=== PATIENT | female | born 2000 | race Caucasian/White ===

== ENCOUNTER 2024-01-29 09:52 | Emergency (ER) | payer SELFPAY ==
--- NOTE | 2024-01-29 10:04 | ED.URI ---
HPI - URI/Sore Throat General Chief Complaint: Upper Respiratory Infection Stated Complaint: flu like symptoms, throat prob Time Seen by Provider: 01/29/24 10:20 Source: patient and RN notes reviewed Mode of arrival: ambulatory Limitations: no limitations History of Present Illness HPI Narrative: 23-year-old female presents with concern for sore throat, sinus drainage, cough for 2 days. Reports she has tried aomj-cdo-givjzbh medications without relief. Reports body aches. Denies fever, chills, sweats. Reports her roommates have similar symptoms MD elicited complaint: cough and sore throat Related Data Allergies Allergy/AdvReac Type Severity Reaction Status Date / Time No Known Drug Allergies Allergy Unknown Verified 01/29/24 10:12 strawberry Allergy Hives Verified 01/29/24 10:12 Review of Systems Review of Systems: CONSTITUTIONAL: Reports malaise. Denies chills, sweats, or fever. EYES: Denies visual changes, redness, or discharge. ENT: Reports rhinorrhea, congestion, and sore throat. CARDIOVASCULAR: Denies chest pain, palpitations, or edema. RESPIRATORY: Reports cough. Denies dyspnea. GASTROINTESTINAL: Denies abdominal pain, nausea, vomiting, diarrhea SKIN: Denies rash or itching. MUSCULOSKELETAL: Reports myalgia. NEUROLOGIC: Denies headache. All systems reviewed & are unremarkable except as noted in HPI and below PMFSH Comments At time of signature, agree with nursing past medical, surgical, social and family history. There is no relevant family history pertinent to the presenting complaint Exam Narrative: GENERAL: Well-appearing, well-nourished, and in no acute distress. HEAD: Normocephalic EYES: PERRLA, conjunctivae clear ENT: Nares clear, turbinates edematous and erythematous, clear discharge. Mucous membranes moist. TM pearly mccormick with dull light reflex bilaterally; no tragal tenderness. Oropharynx not erythematous without lesions. Tonsils not enlarged and without exudate, no drooling, no hoarseness, no trismus, uvula midline. NECK: Supple. No lymphadenopathy CHEST: Clear to auscultation, breath sounds equal. No wheezing, rhonchi, rales, or stridor. No respiratory distress, speaks in full sentences. HEART: Regular rate and rhythm. No murmur heard. SKIN: Warm, dry, no rash. NEURO: Alert and oriented x3. PSYCH: Normal mood and affect Course Course Emergency Course: Patient is aware of diagnosis, understands and agrees to treatment plan. Anticipatory guidance given. Patient agrees to follow-up as directed and is aware of reasons to seek care at the emergency department. Portions of this record may have been created with voice recognition software Level of Care: Express Care Visit Vital Signs Vital signs: Reviewed. MDM - URI/Sore Throat MDM Narrative Medical decision making narrative: Differential diagnosis considered: Sharif virus, strep pharyngitis, allergic rhinitis, upper respiratory tract infection, sinusitis, rhinosinusitis, nasopharyngitis. viral pharyngitis, otitis media, otitis externa, pneumonia, bronchitis, viral cough syndrome, viral syndrome, and influenza. Exam findings show no acute concerns or changes; patient is non-toxic appearing and is in no distress. Patient is appropriate for outpatient treatment and follow-up. Lab Data Attestation: I reviewed the patient's lab results. Critical Care Time Critical Care Time Critical Care Time: No Discharge Plan Discharge Clinical Impression: Upper respiratory infection Patient Disposition: Home, Self-Care Condition: Stable Instructions: Upper Respiratory Infection (ED) Additional Instructions: Your rapid COVID and flu tests are negative Your rapid strep swab was negative today at [facility]. A throat culture will be sent to the laboratory for further testing. If the test is positive, you will receive a phone call within 48 hours and an appropriate antibiotic will be initiated at that time. Your symptoms are likely due
[2024-01-29 10:11] VITALS: BP 129/83; PULSE 96; RESP 16; TEMP 36.3; O2SAT 100
[2024-01-29 10:13] VITALS: BP 129/83; PULSE 96; RESP 16; TEMP 36.3; O2SAT 100
[2024-01-29 10:29] LABS: EDCOVIDSCREEN Negative (Negative); EDINFLUASCREEN Negative (Negative); EDINFLUBSCREEN Negative (Negative); EDSTREPNEGPOS1 Negative (Negative)
== END 2024-01-29 10:37 | disposition home or self-care (01) ==
PROVIDERS: Emergency Provider Nurse Practitioner
DX: J06.9 Acute upper respiratory infection, unspecified (principal); Z20.822 Contact with and (suspected) exposure to COVID-19
CPT/HCPCS: 87081; 87426; 87804; 87880; 99213; G0463

== ENCOUNTER 2024-02-01 09:47 | Emergency (ER) | payer SELFPAY ==
--- NOTE | 2024-02-01 09:50 | ED.URI ---
HPI - URI/Sore Throat General Chief Complaint: Ear Stated Complaint: Chills/Diarrhea/Ear Pain Source: patient and RN notes reviewed Mode of arrival: ambulatory Limitations: no limitations History of Present Illness HPI Narrative: Patient is a 23-year-old female who presents to the [facility] with complaints of bilateral ear pain which is worse on the left than the right. She states that she has had ear pain since Wednesday. Patient has been seen at this facility and tested for COVID, flu, and strep throat. She states that she had cold symptoms prior to being seen at this facility. All of the testing was negative, and she was diagnosed with a viral illness. She states that she has also had multiple episodes of diarrhea and had an episode of vomiting. She states that she has had decreased appetite. She denies abdominal pain. Denies fever. Denies chest pain or shortness of breath. Related Data Allergies Allergy/AdvReac Type Severity Reaction Status Date / Time No Known Drug Allergies Allergy Unknown Verified 02/01/24 10:03 strawberry Allergy Hives Verified 02/01/24 10:03 Review of Systems Review of Systems: CONSTITUTIONAL: Denies fever, chills, or sweats. EYES: Denies visual changes, redness, or discharge. ENT: Reports otalgia but denies sore throat CARDIOVASCULAR: Denies chest pain, palpitations, or edema. RESPIRATORY: Denies cough or dyspnea. GASTROINTESTINAL: Denies abdominal pain, but reports vomiting and diarrhea. GENITOURINARY: Denies dysuria or hematuria. SKIN: Denies rash or itching. MUSCULOSKELETAL: Denies back pain, joint pain, or myalgia. NEUROLOGIC: Denies headache, numbness, or weakness. Pertinent positives per HPI. PMFSH Comments At the time of my signature, I reviewed and agree with the nursing past medical, surgical, social, and family history. There is no relevant family history pertinent to the patient complaint. Exam Narrative: GENERAL: This is a well-nourished, well-developed patient, in no apparent distress. HEAD: normocephalic, atraumatic. EYES: PERRL. Sclera clear/white. Vision is grossly intact. EARS: External ears normal, auditory canals clear and without drainage, TM normal without perforation on right; left TM erythematous and bulging. Hearing grossly intact. NOSE: External nose normal with no obvious nasal discharge, nares without redness, no rhinorrhea. THROAT: Mucous membranes moist, posterior pharynx clear. NECK: Neck supple, non-tender without lymphadenopathy, masses or thyromegaly. CARDIOVASCULAR: Regular rate and rhythm without murmurs, gallops, or rubs. RESPIRATORY: Clear to auscultation. Breath sounds equal bilaterally. No wheezes, rales, or rhonchi. GASTROINTESTINAL: Abdomen soft, non-tender, nondistended. Bowel sounds are active. No hepato-splenomegaly, or palpable masses. No guarding. SKIN: warm, intact with no suspicious lesions or rash, good texture and turgor. NEURO: awake, alert, and oriented to person, place and time. There were no obvious focal neurologic abnormalities. EXTREMITIES: No clubbing, cyanosis, or edema. No joint tenderness, effusion, or edema noted. BACK: Nontender without deformity or crepitance. No flank tenderness. Course Course Level of Care: Express Care Visit Vital Signs Vital signs: Vital Signs Temperature 97.7 F 02/01/24 10:03 Pulse Rate 86 02/01/24 10:03 Respiratory Rate 16 02/01/24 10:03 Blood Pressure 110/70 02/01/24 10:03 Pulse Oximetry 100 02/01/24 10:03 Temperature 97.7 F 02/01/24 10:03 Pulse Rate 86 02/01/24 10:03 Respiratory Rate 16 02/01/24 10:03 Blood Pressure 110/70 02/01/24 10:03 Pulse Oximetry 100 02/01/24 10:03 Reviewed MDM - URI/Sore Throat MDM Narrative Medical decision making narrative: Take antibiotics as directed. May given ibuprofen and/or Tylenol as needed for pain and/or fever. Follow up with primary care provider in 7-10 days to have ear rechecked. Differential Diagnosis Dif
[2024-02-01 10:03] VITALS: BP 110/70; PULSE 86; RESP 16; TEMP 36.5; O2SAT 100
== END 2024-02-01 10:19 | disposition home or self-care (01) ==
PROVIDERS: Emergency Provider Nurse Practitioner
DX: H66.92 Otitis media, unspecified, left ear (principal)
CPT/HCPCS: 99213; G0463

== ENCOUNTER 2024-07-11 19:30 | Emergency (ER) | payer SELFPAY ==
--- OUTSIDE RECORDS SUMMARY | 2024-07-11 19:32 | XMS_ITS | Patient Health Summary ---
Author Organization [facility] [employer] Address [address] [place] [address] Care Team Providers Care Director Software Quality Assurance Name Role Phone Unavailable Primary Care Provider Unavailabl e Note from [facility],non-owned Affiliates and Associated Physician Practices is amultiple site organization consisting of ambulatory clinics and hospital sitesin [place], [place], [place] and [place]. This disclosure is being madepursuant to the Care Everywhere program and may not contain all information available regarding this patient. Last updated 18.[facility] Medications Be aware that medications may not be up to date on this document. Always verify current medications with the patient. No known medications Social History Tobacco Use Types Packs/Day Years Used Date Smoking Tobacco: Never Passive Smoke Exposure: Never Smokeless Tobacco: Never Tobacco Cessation:Counseling Given: Not Answered Sex and Gender Information Value Date Recorded Sex Assigned at Not on file Gender Identity Not on file Sexual Orientation Not on file Last Filed Vital Signs Vital Sign Reading Time Taken Comments Blood Pressure - - Pulse - - Temperature - - Respiratory Rate - - Oxygen Saturation - - Inhaled Oxygen Concentration - - Weight 68.3 kg (150 lb 9.2 oz) 08/25/2022 4:10 P M CDT Height 163.4 cm (5' 4.33 ) 08/25/2022 4:10 PM CD T Body Mass Index 25.58 08/25/2022 4:10 PM CDT Procedures * XR SHOULDER RIGHT 2VW OR MORE(Performed 08/25/2022) Performed for Closed dislocation of right glenohumeral joint, initial encounter Results * XR SHOULDER RIGHT 2VW OR MORE (08/25/2022 4:33 PM CDT) Anatomical Region Laterality Modality Upper Extremity Radiographic Akiko ging 08/25/2022 4:39 PM CDT Impressions 08/25/2022 4:50 PM CDT Question slight indentation along the posterior superior humeral head. This may reflect normal variant versus possible Hill-Sachs injury, please correlate with patient clinical presentation. Reading Radiologist: Yasmin Edwards on 08/25/2022 at 4:50 PM Narrative 08/25/2022 4:50 PM CDT INDICATION: Shoulder dislocation COMPARISON: None available. TECHNIQUE: 3 views of the right shoulder. FINDINGS: Question slight indentation along the posterior superior humeral head. The glenoid is normal in appearance. The humeral head is well-seated within the glenoid. The soft tissues are normal. Procedure Note Yasmin Edwards DO - 08/25/2022 INDICATION: Shoulder dislocation COMPARISON: None available. TECHNIQUE: 3 views of the right shoulder. FINDINGS: Question slight indentation along the posterior superior humeral head. The glenoid is normal in appearance. The humeral head is well-seated within the glenoid. The soft tissues are normal. IMPRESSION Question slight indentation along the posterior superior humeral head.This may reflect normal variant versus possible Hill-Sachs injury, please correlatewith patient clinical presentation. Reading Radiologist: Yasmin Edwards on 08/25/2022 at 4:50 PM Cyndee Coronel MD DIAGNOSTIC IMAGING [facility]
--- OUTSIDE RECORDS SUMMARY | 2024-07-11 19:32 | XMS_ITS | Clinical Summary ---
Author Organization [facility] Address [address] [place] [address] Phone Care Team Providers Care Cnc Machine Setter Name Role Phone Provider, Unknown Primary Care Provider Unavaila ble Allergies Active Allergy Reactions Criticality Noted Date Comments Bode Flavoring Agent (Non-Screening) Other (see Comments) 01/20/2021 Medications No known medications Active Problems No known active problems Immunizations Immunization Administration Dates Next Due DTAP VACCINE 01/19/2007, 4,2002,08/09,2002 HEP B/HIB Combined Vaccine 2002,2002 Hepatitis B Vaccine, Pediatric/adolescent 2002 Hib Vaccine,unspecified Formulation 10/05/2003,0 2002 Human Papillomavirus (HPV) 9 -valent Vaccine 01/08/2020 Inactivated Polio Vaccine 01/19/2007,,2002,06/07 Influenza Vaccine, Quadrivalent, PF 02/15/2019 MMR Vaccine 05/07/2003 MMRV 01/19/2007 Meningococcal Group B OMV 03/01/2020,01/08/2020 Meningococcal MCV4O 01/08/2020 Meningococcal Vaccine 11/25/2015 Pneumococcal Vaccine Peds - 7 Valent 05/07/2003, 03/05/2003 TDAP Vaccine 10/26/2013 Varicella Vaccine Live 05/07/2003 Social History Tobacco Use Types Packs/Day Years Used Date Smoking Tobacco: Never Smokeless Tobacco: Never Tobacco Cessation:Counseling Given: Not Answered Alcohol Use Standard Drinks/Week Comments Not Currently 0 (1 standard drink = 0.6 oz pur e alcohol) Sexually Active Control Partners Comments Yes Comments No Sex and Gender Information Value Date Recorded Sex Assigned at Not on file Legal Sex Female 8:08 AM CDT Gender Identity Not on file Sexual Orientation Not on file Last Filed Vital Signs Vital Sign Reading Time Taken Comments Blood Pressure 129/74 10/15/2023 9:48 AM CDT Pulse 98 10/15/2023 9:48 AM CDT Temperature 36.3 C (97.3 F) 10/15/2023 9:48 AM CDT Respiratory Rate 16 10/15/2023 9:48 AM CDT Oxygen Saturation 98% 10/15/2023 9:48 AM CDT Inhaled Oxygen Concentration - - Weight 68 kg (150 lb) 10/15/2023 9:48 AM CDT Height 160 cm (5' 3 ) 10/15/2023 9:48 AM CDT Body Mass Index 26.57 10/15/2023 9:48 AM CDT Plan of Treatment Health Maintenance Due Date Last Done Comments Hepatitis C Virus (HCV) Screening 2002 Human Papillomavirus (HPV) Immunization (2 - 3-dose series) 02/05/2020 01/08/2020 Pap Smear 2023 DTaP/Tdap/Td Immunization (7 - Td or Tdap) 10/27/2023 10/26/2013, 01/19/2007, 10/05/2003, Additional history exists Influenza Immunization (#1) 2024 02/15/2019 SARS-COV-2 Immunization ( season) 2024 01/28/2021, 01/04/2021 Respiratory Syncytial Virus (RSV) Immunization (Adult) (1 - 1-dose 75+ series) 2077 Hepatitis B Immunization Completed 003, 2002, 2002 Pneumococcal Immunization Combined Aged Out 05/07/2003, 03/05/2003 No longer eligibl e based on patient's age to complete this topic Measles Mumps Rubella (MMR) Immunization Discontinued 01/19/2007, 05/07/2003 Polio (IPV) Immunization Discontinued 007, 10/05/2003, 2002, Additional history exists Varicella Immunization Discontinued 01/19/2007, 2002 Meningococcal Immunization (ACWY) Completed 01/08/2020, 11/25/2015 Meningococcal B Immunization Completed 03/01/2020, 01/08/2020 Rotavirus Immunization Aged Out No lo nger eligible based on patient's age to complete this topic Care Teams Cnc Machine Setter Relationship Specialty Start Date End Date Provider, Unknown UNKNOWN PCP - General 01/20/21
--- OUTSIDE RECORDS SUMMARY | 2024-07-11 19:32 | XMS_ITS | Referral Summary ---
Author Organization [facility] [employer] Address [address] [place] [address] Care Team Providers Care Automobile Body Repairer Name Role Phone Unavailable Primary Care Provider Unavailabl e Source Comments [facility] [employer],non-owned Affiliates and Associated Physician Practices is amultiple site organization consisting of ambulatory clinics and hospital sitesin [place], [place], [place] and [place]. This disclosure is being madepursuant to the Care Everywhere program and may not contain all information available regarding this patient. Last updated 18.[facility] [employer] Medications Be aware that medications may not [...] Mass Index 25.58 08/25/2022 4:10 PM CDT Plan of Treatment Not on file [facility] [place] [address] Kim Lord Personal/Famil y Self 2000 [facility] [place] [place] [address]
--- OUTSIDE RECORDS SUMMARY | 2024-07-11 19:32 | XMS_ITS | Clinical Summary ---
Author Organization [facility] [employer] Address [address] [place] [address] Care Team Providers Care Web Content Editor Name Role Phone Unavailable Primary Care Provider Unavailabl e Source Comments [facility] [employer],non-owned Affiliates and Associated Physician Practices is amultiple site organization consisting of ambulatory clinics and hospital sitesin [place], [place], [place] and [place]. This disclosure is being madepursuant to the Care Everywhere program and may not contain all information available regarding this patient. Last updated 18.[facility] [employer] Medications Be aware that medications may not [...] 08/25/2022 4:10 PM CDT Plan of Treatment Health Maintenance Due Date Last Done Comments PAP SMEAR 2002 HIV SCREENING 2017 HPV VACCINE (1 - 3-dose series) 2017 CHLAMYDIA/GONORRHEA SCREENING 2018 MENINGOCOCCAL (Group B) VACC INE (1 of 2 - Standard) 2018 HEPATITIS C SCREENING 04/02/2020 DTAP/TDAP/TD VACCINES (1 - Tdap) 2021 HEPATITIS B VACCINE (1 of 3 - 19+ 3-dose series) 2021 COVID-19 VACCINE (1 - 2023-2 5 season) 2024 INFLUENZA VACCINE (#1) 2024 02/15/2019 DEPRESSION SCREENING 05/10/2024 ZOSTER VACCINE (1 of 2) 2052 HIB VACCINE Aged Out No longer eligi ble based on patient's age to complete this topic MENINGOCOCCAL VACCINE Aged Out No shun mandie eligible based on patient's age to complete this topic PNEUMOCOCCAL VACCINE Aged Out No long er eligible based on patient's age to complete this topic Kim Lord Personal/Famil y Self 2000 [facility] [place] [address]
[2024-07-11 19:34] VITALS: BP 129/85; PULSE 120; RESP 20; TEMP 36.1; O2SAT 100
--- NOTE | 2024-07-11 20:26 | ED_ITS ---
HPI - Skin/Abscess/Foreign Bdy General Chief complaint: Skin/Abscess/Foreign Body Stated complaint: spider bite Time Seen by Provider: 07/11/24 20:05 History of Present Illness HPI narrative: 24-year-old female presents emergency department with concerns for spider bite to her left thigh for the past week. Patient states a week ago she noticed a rash her her left inner thigh that developed into a blister. The blister cauda she has a laceration history this tenderness. She denies see above spider bite her. She denies spontaneous drainage, fever, vomiting. Tetanus is up-to-date. Denies possibility of . No past medical history. Related Data Allergies Allergy/AdvReac Type Severity Reaction Status Date / Time No Known Drug Allergies Allergy Unknown Verified 07/11/24 19:49 strawberry Allergy Hives Verified 07/11/24 19:49 Review of Systems Review of Systems: All systems reviewed & are unremarkable except as noted in HPI and below Exam Narrative: GENERAL: Well-appearing, well-nourished, and in no acute distress. HEAD: Normocephalic, atraumatic. EYES: EOMI. ENT: Nares clear, no rhinorrhea or epistaxis. Mucous membranes moist. NECK: Supple. CHEST: Clear to auscultation. No respiratory distress. HEART: Regular rate and rhythm. No murmur heard. Normal peripheral pulses. EXTREMITIES: Normal range of motion. No edema. SKIN: 0.5cm ulceration with green/yellow base to the left inner thigh, approximately 4 cm of surrounding erythema and warmth. There is tender to palpation. No fluctuance or induration. No vesicles. NEURO: No focal deficits. Alert and oriented x3 Course Vital Signs Vital signs: Vital Signs Temperature 97.0 F L 07/11/24 19:34 Pulse Rate 120 H 07/11/24 19:34 Respiratory Rate 20 07/11/24 19:34 Blood Pressure 129/85 07/11/24 19:34 Pulse Oximetry 100 07/11/24 19:34 Oxygen Delivery Room Air 07/11/24 19:34 Temperature 97.0 F L 07/11/24 19:34 Pulse Rate 120 H 07/11/24 19:34 Respiratory Rate 20 07/11/24 19:34 Blood Pressure 129/85 07/11/24 19:34 Pulse Oximetry 100 07/11/24 19:34 Oxygen Delivery Room Air 07/11/24 19:34 MDM - Skin/Abscess/Foreign Bdy MDM Narrative Medical decision making narrative: 24-year-old female presents emergency department with concerns for spider bite to her left inner thigh for 1 week. See HPI for further history. Triage vitals with tachycardia of 120, patient does appear anxious. She is afebrile. Exam is significant for the above. There is no evidence of an abscess for I&D. Presentation is consistent with likely a spider bite. Her Tdap is up-to-date. She denies possibility of . Will start her on Bactrim, 1st dose provided in the ED and provide PCP follow-up. Discussed return precautions. She is agreeable with the plan verbalized understanding. Discharged in stable condition. Discharge Plan Discharge Clinical Impression: Cellulitis Qualifiers: Site of cellulitis: extremity Site of cellulitis of extremity: lower extremity Laterality: left Qualified Code(s): L03.116 - Cellulitis of left lower limb Patient Disposition: Home, Self-Care Condition: Stable Instructions: Antibiotic Form, Cellulitis (ED), Insect Bite or Sting (ED) Additional Instructions: Your evaluated in the emergency department with concerns for spider bite. Please take the antibiotics as directed follow-up with the primary care provider. You may need to see wound care as set up by primary care. Return to the emergency department if you develop a fever, increasing redness, vomiting or other concerning symptoms. Patient Language: Peruvian Prescriptions: New sulfamethoxazole-trimethoprim 800-160 mg tablet 1 tablet PO Q12H Qty: 14 0RF No Action pseudoephedrine HCl [12 Hour Decongestant] 120 mg tablet extended release 120 mg PO Q12H PRN (Reason: nasal congestion) Qty: 20 0RF Follow-up/Referrals: PHYSICIAN,PERSONNEL ASSOCIATE [Non-Staff] - Zaheer Connolly MD [Physician] -
--- OUTSIDE RECORDS SUMMARY | 2024-07-11 20:30 | XMS_ITS | Patient Health Summary ---
Author Organization [facility] [employer] Address [address] [place] [address] Care Team Providers Care Career Technical Supervisor Name Role Phone Unavailable Primary Care Provider Unavailabl e Note from [facility] [employer] [facility],non-owned Affiliates and Associated Physician Practices is amultiple site organization consisting of ambulatory clinics and hospital sitesin [place], [place], [place] and [place]. This disclosure is being madepursuant to the Care Everywhere program and may not contain all information available regarding this patient. Last updated 18.[facility] [employer] Medications Be aware that medications may not [...]
--- OUTSIDE RECORDS SUMMARY | 2024-07-11 20:30 | XMS_ITS | Referral Summary ---
Author Organization [facility] [employer] Address [address] [place] [address] Care Team Providers Care Newscast Director Name Role Phone Unavailable Primary Care Provider Unavailabl e Source Comments [facility] [employer]non-owned Affiliates and Associated Physician Practices is amultiple site organization consisting of ambulatory clinics and hospital sitesin [place], [place], [place] and [place]. This disclosure is being madepursuant to the Care Everywhere program and may not contain all information available regarding this patient. Last updated 18.[facility] [employer] Medications Be aware that medications may not [...] CDT Plan of Treatment Not on file [facility] [place] [address] Kim Lord Personal/Famil y Self 2000 [facility] [facility] [place] [address]
--- OUTSIDE RECORDS SUMMARY | 2024-07-11 20:30 | XMS_ITS | Clinical Summary ---
Author Organization [facility] Address [address] [place] [address] Phone Care Team Providers Care Lining Printer Name Role Phone Provider, Unknown Primary Care Provider Unavaila ble Allergies Active Allergy Reactions Criticality Noted Date Comments [place] Flavoring Agent (Non-Screening) Other (see Comments) 01/20/2021 [...] age to complete this topic Care Teams Lining Printer Relationship Specialty Start Date End Date Provider, Unknown UNKNOWN PCP - General 01/20/21
--- OUTSIDE RECORDS SUMMARY | 2024-07-11 20:30 | XMS_ITS | Clinical Summary ---
Author Organization [facility] Address [address] [place] [address] Care Team Providers Care Talend Developer Name Role Phone Unavailable Primary Care Provider Unavailabl e Source Comments [facility],non-owned Affiliates and Associated Physician Practices is amultiple site organization consisting of ambulatory clinics and hospital sitesin [place], [place], [place] and [place]. This disclosure is being madepursuant to the Care Everywhere program and may not contain all information available regarding this patient. Last updated 18.[facility] Medications Be aware that medications may not [...] topic Kim Lord Personal/Famil y Self [address] [place] [address]
[2024-07-11] MEDS: SULFAMETHOXAZOLE/TRIMETHOPRIM 800/160 MG DS TABLET 1 TAB PO (20:41)
== END 2024-07-11 20:44 | disposition home or self-care (01) ==
PROVIDERS: Emergency Provider Physician Assistant
DX: L03.116 Cellulitis of left lower limb (principal)
CPT/HCPCS: 99283; A9270